=== PATIENT | female | born 1990 | race Caucasian/White ===

== ENCOUNTER → 2018-09-15 | Outpatient (CLI) | payer OTHER ==
[~2018-09-15] MED LIST: Verotin-Gr Cap1 EACH PO
[2018-09-15 11:12] LABS: BASOPHILS ABSOLUTE AUTO 0.03 K/mm3 (0.00-0.23); BASOPHILS PERCENT AUTO 0 % (0-2); EOSINOPHILS ABSOLUTE AUTO 0.03 K/mm3 (0.00-0.68); EOSINOPHILS PERCENT AUTO 0 % (0-6); Hematocrit 39.7 % (33.0-51.0); Hemoglobin 13.7 g/dL (11.5-16.0); IMMATURE GRAN ABSOLUTE AUTO 0.03 K/mm3 (0.00-0.10); IMMATURE GRAN PERCENT AUTO 0 % (0-1); LYMPHOCYTES ABSOLUTE AUTO 2.05 K/mm3 (0.84-5.20); LYMPHOCYTES PERCENT AUTO 29 % (21-46); MONOCYTES ABSOLUTE AUTO 0.57 K/mm3 (0.16-1.47); MONOCYTES PERCENT AUTO 8 % (4-13); Mean Corpuscular HGB 30.4 pg (26.0-34.0); Mean Corpuscular HGB Conc 34.5 g/dL (31.5-36.5); Mean Corpuscular Volume 88 fL (80-100); Mean Platelet Volume 9.2 fL (9.1-12.4); NEUTROPHILS PERCENT AUTO 62 % (41-73); Platelet Count 232 K/mm3 (150-400); RDW Coefficient Variation 11.8 % (11.7-14.2); RDW Standard Deviation 37.6 fL (35.1-46.3); Red Blood Cell Count 4.51 M/mm3 (3.80-5.20); White Blood Cell Count 7.01 K/mm3 (4.00-11.30)
== END | disposition home or self-care (01) ==
LOC: LAB SHORT 11:05 → LAB EV 11:05
PROVIDERS: Physician Assistant Surgical
DX: R10.31 Right lower quadrant pain (principal)
CPT/HCPCS: 84702; 85025

== ENCOUNTER 2018-10-18 23:11 | Emergency (ER) | payer OTHER ==
[~2018-10-18] VITALS: Ht 172.7 cm; Wt 68.0 kg
[2018-10-19 00:44] LABS: BASOPHILS ABSOLUTE AUTO 0.09 K/mm3 (0.00-0.23); BASOPHILS PERCENT AUTO 1 % (0-2); EOSINOPHILS ABSOLUTE AUTO 0.17 K/mm3 (0.00-0.68); EOSINOPHILS PERCENT AUTO 2 % (0-6); Hemoglobin 14.3 g/dL (11.5-16.0); IMMATURE GRAN ABSOLUTE AUTO 0.02 K/mm3 (0.00-0.10); IMMATURE GRAN PERCENT AUTO 0 % (0-1); LYMPHOCYTES ABSOLUTE AUTO 3.01 K/mm3 (0.84-5.20); LYMPHOCYTES PERCENT AUTO 31 % (21-46); MONOCYTES ABSOLUTE AUTO 0.69 K/mm3 (0.16-1.47); MONOCYTES PERCENT AUTO 7 % (4-13); Mean Corpuscular HGB 30.3 pg (26.0-34.0); Mean Corpuscular HGB Conc 32.5 g/dL (31.5-36.5); Mean Corpuscular Volume 93 fL (80-100); Mean Platelet Volume 9.2 fL (9.1-12.4); NEUTROPHILS ABSOLUTE AUTO 5.82 K/mm3 (1.96-9.15); NEUTROPHILS PERCENT AUTO 60 % (41-73); Platelet Count 234 K/mm3 (150-400); RDW Coefficient Variation 11.7 % (11.7-14.2); RDW Standard Deviation 40.6 fL (35.1-46.3); Red Blood Cell Count 4.72 M/mm3 (3.80-5.20)
[2018-10-19 01:39] LABS: Alanine Aminotransfer (ALT/SGP 28 U/L (12-78); Albumin, Blood 4.4 g/dL (3.4-5.0); Albumin/Globulin Ratio 1.3 (0.8-1.8); Alk Phos 59 U/L (50-136); Anion Gap 7 mmol/L (6-16); Aspartate Aminotrans (AST/SGOT 21 U/L (12-37); Bilirubin, Total 0.3 mg/dL (0.1-1.0); Blood Urea Nitrogen 11 mg/dL (8-24); Bun/Creatinine Ratio 16.4 (12.0-20.0); CO2, Blood 24 mmol/L (21-32); Calcium, Blood 8.9 mg/dL (8.5-10.1); Chloride, Blood 107 mmol/L (98-108); Creatinine, Blood 0.67 mg/dL (0.40-1.00); Globulin, Blood 3.5 g/dL (2.2-4.0); Glomerular Filtration Rate >60 (60-); Glucose, Blood 86 mg/dL (70-99); Potassium, Blood 3.3 mmol/L (3.5-5.5); Sodium, Blood 138 mmol/L (136-145); Total Protein, Blood 7.9 g/dL (6.4-8.2)
[2018-10-19 01:41] LABS: Beta HCG, Quantitative, Serum 4644 mIU/mL (0-3)
[2018-10-19] MEDS ORDERED: Verotin-Gr Cap1 EACH PO (02:04)
== END 2018-10-19 03:46 | disposition home or self-care (01) ==
LOC: ER 23:11
PROVIDERS: Physician Assistant
DX: O20.0 Threatened abortion (principal); Z88.2 Allergy status to sulfonamides; Z88.8 Allergy status to other drugs, medicaments and biological substances; Z88.1 Allergy status to other antibiotic agents
CPT/HCPCS: 36415; 76801; 80053; 84702; 85025; 86850; 86900; 86901; 96372; 99284-25; J2790

== ENCOUNTER 2020-08-17 06:33 | Day surgery (SDC) | payer OTHER ==
[~2020-08-17] VITALS: Ht 172.7 cm; Wt 66.8 kg
[2020-08-17] MEDS ORDERED: MULTIPLE VITAM1 EACH PO (07:13)
== END 2020-08-17 09:43 | disposition home or self-care (01) ==
LOC: ORSCSDS 06:33
PROVIDERS: Obstetrics & Gynecology
PROC: 0U5F4ZZ Destruction of Cul-de-sac, Percutaneous Endoscopic Approach (ICD-10-PCS; principal; 2020-08-17 07:30)
PROC: 0DNW4ZZ Release Peritoneum, Percutaneous Endoscopic Approach (ICD-10-PCS; principal; 2020-08-17 07:30)
DX: R10.2 Pelvic and perineal pain (principal); N80.9 Endometriosis, unspecified; N73.6 Female pelvic peritoneal adhesions (postinfective)
CPT/HCPCS: J0171; J0330; J1100; J1885; J2250; J2405; J2704; J2765; J3010; J7120

== ENCOUNTER → 2020-09-02 | Outpatient (CLI) | payer OTHER ==
[~2020-09-02] MED LIST changes: +MULTIPLE VITAM1 EACH PO
== END | disposition home or self-care (01) ==
LOC: LAB SHORT 15:35 → LAB 15:35
PROVIDERS: Obstetrics & Gynecology
DX: Z12.4 Encounter for screening for malignant neoplasm of cervix (principal)
CPT/HCPCS: G0123

== ENCOUNTER 2021-05-31 08:03 | Day surgery (SDC) | payer OTHER ==
[~2021-05-31] VITALS: Ht 172.7 cm; Wt 69.2 kg
--- NOTE | 2021-05-31 08:45 | NUR ---
05/31/21 0845 Cintia Jules CALL LIGHT WITHIN REACH.
--- NOTE | 2021-05-31 09:54 | NUR ---
05/31/21 0954 Brandie Berry PT DEVELOPED RASH ON SHINS AND AROUND PAS AREA. DR ARIAS NOTIFIED. PER DR GALARZA & DR ARIAS OK TO PROCEED WITHOUT PAS THIS IS A QUICK PROCEDURE.
--- NOTE | 2021-05-31 11:03 | NUR ---
05/31/21 Sylvia Hawkins RN, TOOK OVER CARE FROM RICCI WATERS AT 10:55 AM, DISCHARGE CARE/ASSESSMENT WAS PERFORMED BY NURSE MARTINEZ.
== END 2021-05-31 11:05 | disposition home or self-care (01) ==
LOC: ORSCSDS 08:03
PROVIDERS: Obstetrics & Gynecology
PROC: 0UB98ZX Excision of Uterus, Via Natural or Artificial Opening Endoscopic, Diagnostic (ICD-10-PCS; principal; 2021-05-31 09:45)
DX: N84.8 Polyp of other parts of female genital tract (principal); D25.0 Submucous leiomyoma of uterus
CPT/HCPCS: 88305; J1100; J1885; J2250; J2405; J2704; J2765; J3010; J7120

== ENCOUNTER → 2022-03-13 | Outpatient (CLI) | payer OTHER | END | disposition home or self-care (01) | LOC: LAB SHORT 16:30 | DX: O26.93 Pregnancy related conditions, unspecified, third trimester (principal); Z3A.36 36 weeks gestation of pregnancy | CPT/HCPCS: 87081; 87150 ==

== ENCOUNTER 2024-03-09 06:00 | Inpatient (IN) | payer OTHER ==
[~2024-03-09] VITALS: Ht 170.2 cm; Wt 76.0 kg
[2024-03-09] VITALS (28 sets, daily range): BP systolic 99–155; BP diastolic 57–94
[2024-03-09] MEDS ORDERED: Methylergonovine Maleate 0.2MG / ML 1ML Amp IV ONE (06:56)
[2024-03-09] MEDS ORDERED: FentaNYL 2mcg/ml-Bup 0.1% Epd 250 ML EPI PRN (10:50)
[2024-03-09] MEDS ORDERED: Methylergonovine Maleate 0.2MG / ML 1ML Amp IM PRN (10:50)
[2024-03-09] MEDS ORDERED: Tranexamic Acid 100 ML IV SCH (10:50)
[2024-03-09] MEDS ORDERED: Acetaminophen 500 MG Tab PO PRN (10:50)
[2024-03-09] MEDS ORDERED: Oxytocin 10 Unit / ML Vial IM PRN (10:50)
[2024-03-09] MEDS ORDERED: Ondansetron HCl 2 MG / ML 2ML Vial IV PRN ×2 (10:50→19:35)
[2024-03-09] MEDS ORDERED: Calcium Carbonate 500 MG Tab Chew PO SCH (10:50)
[2024-03-09] MEDS ORDERED: Lactated Ringer's 1,000 ML IV PRN (10:50)
[2024-03-09] MEDS ORDERED: Lactated Ringer's 1,000 ML IV SCH ×3 (10:50→11:30)
[2024-03-09] MEDS ORDERED: OXYTOCIN/RINGER'S LACTATE 500 ML IV PRN (10:50)
[2024-03-09] MEDS ORDERED: ePHEDrine Sulfate 50 MG/ML 1ML Injection XX PRN (10:50)
[2024-03-09] MEDS ORDERED: Misoprostol 200 MCG Tab BC PRN (10:50)
[2024-03-09] MEDS ORDERED: Carboprost Tromethamine 250 MCG/ML 1ML Amp IM PRN (10:50)
[2024-03-09] MEDS ORDERED: Misoprostol 200 MCG Tab PR PRN (10:50)
[2024-03-09 10:57] LABS: BASOPHILS ABSOLUTE AUTO 0.03 K/mm3 (0.00-0.23); BASOPHILS PERCENT AUTO 0 % (0-2); EOSINOPHILS ABSOLUTE AUTO 0.02 K/mm3 (0.00-0.68); EOSINOPHILS PERCENT AUTO 0 % (0-6); Hematocrit 37.4 % (33.0-51.0); Hemoglobin 13.3 g/dL (11.5-16.0); IMMATURE GRAN PERCENT AUTO 1 % (0-1); LYMPHOCYTES PERCENT AUTO 19 % (21-46); MONOCYTES ABSOLUTE AUTO 0.86 K/mm3 (0.16-1.47); MONOCYTES PERCENT AUTO 6 % (4-13); Mean Corpuscular HGB 32.4 pg (26.0-34.0); Mean Corpuscular HGB Conc 35.6 g/dL (31.5-36.5); Mean Corpuscular Volume 91 fL (80-100); Mean Platelet Volume 10.5 fL (9.1-12.4); NEUTROPHILS ABSOLUTE AUTO 10.04 K/mm3 (1.96-9.15); NEUTROPHILS PERCENT AUTO 74 % (41-73); Platelet Count 194 K/mm3 (150-400); RDW Coefficient Variation 11.5 % (11.7-14.2); RDW Standard Deviation 38.3 fL (35.1-46.3); White Blood Cell Count 13.55 K/mm3 (4.00-11.30)
[2024-03-09] MEDS ORDERED: OXYTOCIN/RINGER'S LACTATE 500 ML IV SCH (11:30)
[2024-03-09] MEDS ORDERED: Naloxone HCl 0.4MG / ML 1ML Vial IV PRN (19:35)
[2024-03-09] MEDS ORDERED: DiphenhydrAMINE HCl 50 MG/ML 1ML Vial IV PRN (19:35)
[2024-03-09] MEDS ORDERED: Metoclopramide HCl 5MG / ML 2ML Vial IV PRN (19:40)
[2024-03-09] MEDS ORDERED: ePHEDrine Sulfate 50 MG/ML 1ML Injection IV PRN (19:40)
[2024-03-10] VITALS (19 sets, daily range): BP systolic 105–167; BP diastolic 55–81
[2024-03-10] MEDS ORDERED: Lactated Ringer's 1,000 ML IV SCH (01:30)
[2024-03-10] MEDS ORDERED: Rho(D) Immune Globulin 300 MCG / SYR IM ONE (01:30)
[2024-03-10] MEDS ORDERED: Methylergonovine Maleate 0.2MG / ML 1ML Amp IM PRN (01:30)
[2024-03-10] MEDS ORDERED: Acetaminophen 325 MG TABLET PO PRN (01:30)
[2024-03-10] MEDS ORDERED: Benzocaine Topical Anesthetic Spray 60GM TOP PRN (01:30)
[2024-03-10] MEDS ORDERED: OXYTOCIN/RINGER'S LACTATE 500 ML IV SCH (01:35)
[2024-03-10] MEDS ORDERED: Ibuprofen 400 MG Tab PO PRN (01:35)
[2024-03-10] MEDS ORDERED: Docusate Sodium 100 MG Cap PO PRN (01:35)
[2024-03-10] MEDS ORDERED: Witch Hazel/Glycerin PADS TOP PRN (01:35)
[2024-03-10] MEDS ORDERED: FLU VACC TS2024-25(6MOS UP)/PF 45 MCG/0.5 ML SYRINGE IM ONE (01:35)
[2024-03-10] MEDS ORDERED: Misoprostol 200 MCG Tab PR PRN (01:35)
[2024-03-10 02:33] LABS: Hematocrit 32.9 % (33.0-51.0); Hemoglobin 11.7 g/dL (11.5-16.0); Mean Corpuscular HGB 32.9 pg (26.0-34.0); Mean Corpuscular HGB Conc 35.6 g/dL (31.5-36.5); Mean Corpuscular Volume 92 fL (80-100); Mean Platelet Volume 10.3 fL (9.1-12.4); Platelet Count 176 K/mm3 (150-400); RDW Coefficient Variation 11.5 % (11.7-14.2); RDW Standard Deviation 39.1 fL (35.1-46.3); Red Blood Cell Count 3.56 M/mm3 (3.80-5.20); White Blood Cell Count 18.23 K/mm3 (4.00-11.30)
[2024-03-10 03:03] LABS: International Normalized Ratio 0.96; Prothrombin Time Results 10.3 Sec (9.7-11.5)
[2024-03-10] MEDS ORDERED: Ketorolac Tromethamine 30mg Vial IV SCH (06:00)
[2024-03-10 06:03] LABS: BASOPHILS ABSOLUTE AUTO 0.04 K/mm3 (0.00-0.23); BASOPHILS PERCENT AUTO 0 % (0-2); EOSINOPHILS PERCENT AUTO 0 % (0-6); Hemoglobin 11.1 g/dL (11.5-16.0); IMMATURE GRAN ABSOLUTE AUTO 0.11 K/mm3 (0.00-0.10); IMMATURE GRAN PERCENT AUTO 1 % (0-1); LYMPHOCYTES ABSOLUTE AUTO 1.88 K/mm3 (0.84-5.20); LYMPHOCYTES PERCENT AUTO 11 % (21-46); MONOCYTES ABSOLUTE AUTO 0.99 K/mm3 (0.16-1.47); MONOCYTES PERCENT AUTO 6 % (4-13); Mean Corpuscular HGB Conc 35.8 g/dL (31.5-36.5); Mean Corpuscular Volume 92 fL (80-100); Mean Platelet Volume 10.4 fL (9.1-12.4); NEUTROPHILS ABSOLUTE AUTO 13.61 K/mm3 (1.96-9.15); NEUTROPHILS PERCENT AUTO 82 % (41-73); Platelet Count 185 K/mm3 (150-400); RDW Coefficient Variation 11.5 % (11.7-14.2); RDW Standard Deviation 38.5 fL (35.1-46.3); Red Blood Cell Count 3.36 M/mm3 (3.80-5.20); White Blood Cell Count 16.63 K/mm3 (4.00-11.30)
[2024-03-10 06:19] LABS: International Normalized Ratio 0.96; Prothrombin Time Results 10.3 Sec (9.7-11.5)
--- NOTE | 2024-03-10 07:40 | NUR ---
PT ENCOURAGED TO CALL IF NEEDS ANYTHING, PT WAS MEDICATED WITH TORDAL FOR CRAMPING, VAG BLEEDING IS VERY SCANT, HAS ICE DIAPER ON, MINIMAL SWELLING, WILL CONTINUE TO MONITOR BLEEDING, IV TO LT AC BOTHERS PT A LITTLE. WILL TAKE THE SECOND IV AND THE GODFREY OUT IF VAG BLEEDING CONINUES TO REMAIN SCANT.
[2024-03-10] MEDS ORDERED: Prenatal Vit/FE Fumarate/FA 1 Tab PO SCH (09:00)
--- NOTE | 2024-03-10 09:31 | NUR ---
went in to go remove lauren cath, pt is sleeping, fob is sleeping and baby is sleeping, will recheck on them within an hour, they were up all morning having a baby and doing baby care
--- NOTE | 2024-03-10 10:20 | NUR ---
lauren dcd, scant vag bleeding on pad, pt draining clear yellow urine 750cc emptied, iv sl to lt ac dcd, was bothering pt and hurting, no redness
--- NOTE | 2024-03-10 11:38 | NUR ---
up to bathroom with SO, reports was able to void, no dizzyness or lightheadedness
--- NOTE | 2024-03-10 12:47 | NUR ---
Patient is nursing her son, while her spoue, Khanh talks with me about the birthing process and the beautiful results. I provided therapeutic listening and and a celebratory presence with a positive response. Spiritual care will remain available.
--- NOTE | 2024-03-10 13:45 | NUR ---
PT SLEEPING, WOKE FOR THE TORDAL THEN WAS GOING TO NAP SOME MORE. ENCOURAGED TO USE CALL LIGHT IF NEEDS ANYTHING
[2024-03-11 01:09] VITALS: BP 111/76
[2024-03-11 05:38] VITALS: BP 119/66
[2024-03-11 08:21] VITALS: BP 121/62
--- NOTE | 2024-03-11 08:27 | NUR ---
Pt. is resting in bed. Spouse is at bedside and welcomes my visit. Facilitated a life review focusing on the delivery of their child Matthew Krause. Listened with interest and empathy. Pt. did respond at one point but was somnolent. Prayed a blessed over the baby, and then continued enagage in an established rapport. Doctor and nurse came in, and Spouse verbalized gratitude for the spiritual care visit.
[2024-03-11 10:33] VITALS: BP 127/71
== END 2024-03-11 11:21 | disposition home or self-care (01) | DRG 807 ==
LOC: BC 06:00 → OBS 06:00 → BC 06:06 → OBS 10:38 → BC 10:39
PROVIDERS: ADMIT Obstetrics & Gynecology
PROC: 10E0XZZ Delivery of Products of Conception, External Approach (ICD-10-PCS; principal; 2024-03-10)
PROC: 0KQM0ZZ Repair Perineum Muscle, Open Approach (ICD-10-PCS; 2024-03-10)
PROC: 3E0S3BZ Introduction of Anesthetic Agent into Epidural Space, Percutaneous Approach (ICD-10-PCS; 2024-03-10)
PROC: 00HU33Z Insertion of Infusion Device into Spinal Canal, Percutaneous Approach (ICD-10-PCS; 2024-03-10)
DX: O48.0 Post-term pregnancy (principal); Z37.0 Single live birth; Z3A.40 40 weeks gestation of pregnancy; Z98.890 Other specified postprocedural states; Z88.8 Allergy status to other drugs, medicaments and biological substances; Z88.2 Allergy status to sulfonamides; Z88.1 Allergy status to other antibiotic agents; Z79.899 Other long term (current) drug therapy; O70.1 Second degree perineal laceration during delivery
CPT/HCPCS: 36415; 51702; 59025; 85025; 85027; 85384; 85610; 85730; 86850; 86870; 86900; 86901; 86922; 99214; A9270; J1885; J2210; J2405; J2590; J7120